=== PATIENT | male | born 1965 | race Caucasian/White ===

== ENCOUNTER → 2022-06-22 13:06 | Outpatient (BNVA) | payer MEDICARE, MEDICAID, SELFPAY | PROVIDERS: PCP Internal Medicine; Visit Provider Hospitalist | DX: J18.9 Pneumonia, unspecified organism (principal); J98.4 Other disorders of lung; R05.3 Chronic cough; B20 Human immunodeficiency virus [HIV] disease; Z79.899 Other long term (current) drug therapy | CPT/HCPCS: 99202 ==

== ENCOUNTER 2022-07-27 13:33 | Outpatient (REF) | payer MEDICARE, MEDICAID, SELFPAY | END 2022-07-27 13:34 | disposition home or self-care (01) | LOC: HO.RESP 13:33 | PROVIDERS: PCP Internal Medicine; Visit Provider Hospitalist | DX: Z13.89 Encounter for screening for other disorder (principal) ==

== ENCOUNTER → 2022-08-24 14:34 | Outpatient (BNVA) | payer MEDICARE, MEDICAID, SELFPAY | PROVIDERS: PCP Internal Medicine; Visit Provider Hospitalist | DX: J98.4 Other disorders of lung (principal); R91.8 Other nonspecific abnormal finding of lung field; R05.3 Chronic cough; Z79.899 Other long term (current) drug therapy | CPT/HCPCS: 99212 ==

== ENCOUNTER 2023-09-19 13:57 | Outpatient (AMB) | payer MEDICARE, MEDICAID, SELFPAY ==
[2023-09-19 14:02] VITALS: BP 124/70; PULSE 89; O2SAT 97; BMI 21.6
--- NOTE | 2023-09-19 14:02 | MHC.OFFVIS ---
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 He suspects that he developed RSV. He was helping his mother at the time and she also became ill with respiratory symptoms. In view of these circumstances with the pandemic he did not go to the ER. Although, his respiratory symptoms are getting worse with shortness of breath cough and chest tightness. Sometime later the patient did follow up with his infectious disease team at [facility]. In he was noted to be hypoxic down to the 80s in part of the workup included a CT scan of the chest with IV contrast, PE protocol. We personally reviewed the CT scan together. Patient definitely had evidence of ground-glass opacities in both bases as well as a pneumonic cyst noted on the right lower lobe adjacent to the area of ground-glass. the patient was treated with antibiotics and also with prednisone. Initially he did start feeling better but after he completed the prednisone the coughing started up again. Coughing was moderate severity nonproductive in nature. Very uncomfortable for him. Therefore his primary care doctor prescribed Symbicort 80/4.5 mcg 2 puffs twice a day. After starting the Symbicort his symptoms improved dramatically. He has been very happy about that fact. He denies any respiratory limitations at this point. On examination though he still has some fine crackles both bases right more than left. We did go for brief walking oximetry the patient maintain a pulse ox of 99% throughout the ambulation without any respiratory complaints. This is overall reassuring. 08/24/2022 the patient is here for a pulmonary follow-up visit. The patient overall is doing well. His respiratory status is back to baseline. The patient did continue the Symbicort. At this point like to continue because he she also much better on it. Denies any significant coughing or shortness of breath. We did review his recent CT scan of the chest and also compared to his CT scan from March. There stress sick improvement in the ground-glass opacities. Now near complete resolution. He now has bilateral pulmonary nodules that are better appreciated now that the ground-glass haziness has subsided. In addition to that there is minimal degree of atelectasis that is likely the residual from the inflammatory process. Overall much significantly improved. The patient overall is very happy with that he did not have his pulmonary function studies because there canceled on the day that he presented which is a unfortunate situation. At this point will hold off on PFTs since he is clinically doing better. Will plan to follow-up in a year's time with a CT scan to follow up with his pulmonary nodules, however. 09/19/2023 the patient is here for a pulmonary follow-up visit. Overall he is doing very well from a respiratory status. He is responding well to the Symbicort. Sometimes he may take 3 inhalations at a time. I did caution him to back down to 2. should also continue rinsing his mouth. He did have a CT scan of the chest in July 2023. Appears that his pulmonary nodules have been stable in the ground-glass opacities have now subsided. Overall very reassuring findings. Although they did mention some hepatocellular disease. At which point the patient did follow-up with his Infectious Disease doctor on primary care and now waiting to see GI. It is reassuring that his LFTs are normal and that his liver function appears to be intact. I did try to reassure him since he is concerned about these findings. Otherwise the patient is without any other complaints. The patient follow-up in a year's time. If he develops any worsening symptoms he will call for an earlier assessment. In view of these stable findings will hold off on imaging studies at this time. Will consider additional imaging studies during the next visit. [facility] Medical History (Updated 08/25/22 @ 08:01 by Torin Crenshaw MD) Pulmonary nodules Lung cyst HIV (human immunodeficiency virus infection) Chronic cough Pneumonitis Social History (Updated 06/22/22 @ 13:33 by FEDERICO Ortez) Patient Tobacco Use Status: Former Tobacco user Tobacco use type: Cigarette Years Smoked: 13 Years Review of Systems Const Denies fever(s) Eyes Denies change in vision ENT Denies change in voice Card Denies chest pain and Denies dyspnea Resp Reports cough and Denies dyspnea GI Reports no additional complaints Musc Reports no additional complaints Skin/Breast Denies rash Neuro Reports no additional complaints [place]/Lymph Denies easy bleeding and Denies easy bruising Physical Exam Vital Signs: Last Vital Signs Pulse 89 09/19/23 14:02 BP 124/70 09/19/23 14:02 Pulse Ox 97 09/19/23 14:02 Oxygen Delivery Method Room Air 09/19/23 14:02 BMI result Body Mass Index 21.6 Const General: comfortable HEENT Head: Yes normocephalic Neck Neck: Yes supple Chest Chest palpation & inspection: normal inspection of the chest Resp Effort & Inspection: normal respiratory effort Auscultation: clear to auscultation bilaterally, no crackles, no rales and no rhonchi Cardio Rate: regular rate Rhythm: regular rhythm Heart sounds: S1 normal heart sound present and S2 normal heart sound present GI Palpation (GI): Soft to palpation Skin General skin exam: no rashes or lesions noted Extrem General: Yes no clubbing, cyanosis or edema Assessment & Plan Assessment & Plan (1) Pneumonitis: Comment: resolved Code(s): J18.9 - Pneumonia, unspecified organism Category: Medical (2) Chronic cough: Comment: better Code(s): R05.3 - Chronic cough Category: Medical (3) Lung cyst: Code(s): J98.4 - Other disorders of lung Category: Medical (4) Pulmonary nodules: Code(s): R91.8 - Other nonspecific abnormal finding of lung field Category: Medical Plan Recommendations: continue symbicort consider additional imaging during the next visit F/U 1 yr Coding Level of Care Code Est Pt Level 4 (79193) Diagnoses Pneumonitis J18.9 Chronic cough R05.3 Lung cyst J98.4 Pulmonary nodules R91.8 Time Spent (min) 17
== END 2023-09-19 14:29 | disposition home or self-care (01) ==
PROVIDERS: PCP Internal Medicine; Visit Provider Hospitalist
DX: J18.9 Pneumonia, unspecified organism (principal); R05.3 Chronic cough; J98.4 Other disorders of lung; R91.8 Other nonspecific abnormal finding of lung field
CPT/HCPCS: 99214

== ENCOUNTER → 2023-09-19 13:57 | Outpatient (BNVA) | payer MEDICARE, MEDICAID, SELFPAY | PROVIDERS: PCP Internal Medicine; Visit Provider Hospitalist | DX: J18.9 Pneumonia, unspecified organism (principal); R05.3 Chronic cough; J98.4 Other disorders of lung; B20 Human immunodeficiency virus [HIV] disease; Z79.899 Other long term (current) drug therapy | CPT/HCPCS: 99212 ==

== ENCOUNTER 2024-10-08 10:41 | Outpatient (AMB) | payer MEDICARE, MEDICAID, SELFPAY ==
[2024-10-08 10:51] VITALS: BP 114/56; PULSE 83; O2SAT 96; BMI 22.4
--- NOTE | 2024-10-08 10:51 | A.OFFVIS_ITS ---
Vital Signs 10/08/24 10:51 Height 5 ft 11 in Weight 160 lb 14.999 oz BMI 22.4 BP 114/56 L Blood Pressure Location Lt brachial Position Sitting Pulse 83 Pulse Source Pulse Oximeter Pulse Oximetry (%) 96 Oxygen Delivery Method Room Air Intake Visit Reasons: Cough Mental Health Practitioner Required: No Accompanied by: Self / Same As Patient Allergies Penicillins Allergy (Severe, Verified 10/08/24 10:54) Anaphylaxis sulfa Drugs Allergy (Severe, Uncoded 09/19/23 14:04) Hives HPI Comments Details: The patient is a 59-year-old gentleman with a diagnosis of HIV on retroviral therapy who apparently was in his usual state health until back in January when he started developing respiratory symptoms likely from a respiratory virus. He suspects that he developed RSV. He was helping his mother at the time and she also became ill with respiratory symptoms. In view of these circumstances with the pandemic he did not go to the ER. Although, his respiratory symptoms are getting worse with shortness of breath cough and chest tightness. Sometime later the patient did follow up with his infectious disease team at [facility]. In he was noted to be hypoxic down to the 80s in part of the workup included a CT scan of the chest with IV contrast, PE protocol. We personally reviewed the CT scan together. Patient definitely had evidence of ground-glass opacities in both bases as well as a pneumonic cyst noted on the right lower lobe adjacent to the area of ground-glass. the patient was treated with antibiotics and also with prednisone. Initially he did start feeling better but after he completed the prednisone the coughing started up again. Coughing was moderate severity nonproductive in nature. Very uncomfortable for him. Therefore his primary care doctor prescribed Symbicort 80/4.5 mcg 2 puffs twice a day. After starting the Symbicort his symptoms improved dramatically. He has been very happy about that fact. He denies any respiratory limitations at this point. On examination though he still has some fine crackles both bases right more than left. We did go for brief walking oximetry the patient maintain a pulse ox of 99% throughout the ambulation without any respiratory complaints. This is overall reassuring. 08/24/2022 the patient is here for a pulmonary follow-up visit. The patient overall is doing well. His respiratory status is back to baseline. The patient did continue the Symbicort. At this point like to continue because he she also much better on it. Denies any significant coughing or shortness of breath. We did review his recent CT scan of the chest and also compared to his CT scan from March. There stress sick improvement in the ground-glass opacities. Now near complete resolution. He now has bilateral pulmonary nodules that are better appreciated now that the ground-glass haziness has subsided. In addition to that there is minimal degree of atelectasis that is likely the residual from the inflammatory process. Overall much significantly improved. The patient overall is very happy with that he did not have his pulmonary function studies because there canceled on the day that he presented which is a unfortunate situation. At this point will hold off on PFTs since he is clinically doing better. Will plan to follow-up in a year's time with a CT scan to follow up with his pulmonary nodules, however. 09/19/2023 the patient is here for a pulmonary follow-up visit. Overall he is doing very well from a respiratory status. He is responding well to the Symbicort. Sometimes he may take 3 inhalations at a time. I did caution him to back down to 2. should also continue rinsing his mouth. He did have a CT scan of the chest in July 2023. Appears that his pulmonary nodules have been stable in the ground-glass opacities have now subsided. Overall very reassuring findings. Although they did mention some hepatocellular disease. At which point the patient did follow-up with his Infectious Disease doctor on primary care and now waiting to see GI. It is reassuring that his LFTs are normal and that his liver function appears to be intact. I did try to reassure him since he is concerned about these findings. Otherwise the patient is without any other complaints. The patient follow-up in a year's time. If he develops any worsening symptoms he will call for an earlier assessment. In view of these stable findings will hold off on imaging studies at this time. Will consider additional imaging studies during the next visit. 10/08/2024 the patient is here for pulmonary follow-up visit. Overall he is doing well. He did get an evaluation from GI regarding the hepatocellular findi ngs on the CAT scan of the chest and everything worked out well. He is very excited about that. As far as his breathing has been doing okay. He has been on the Symbicort. Although he has noticed some palpitations at times. It has been happening now for about a year although he is noticing a little bit more. He now he is complaining of some substernal chest burning sensation when he is going up a flight of stairs. Typically gets better when he rests. The patient has been using the Symbicort typically just in the morning. We did talk about the Symbicort with a formoterol being a very strong beta agonist and achy indeed induced palpitations. Therefore will switch him over to Advair HFA. The other option is Trelegy but he wants to avoid powder. In addition to that the patient will have an EKG. If his EKGs abnormal he definitely needs to see Cardiology sooner rather than later. However, I also told them that if he gets the burning sensation and if does not improve after resting he needs to be seen urgently by a medical provider. Again, he is going to follow-up with his primary care doctor soon he is going to request a cardiology evaluation which I believe is very reasonable. [facility] Medical History (Updated 10/08/24 @ 22:46 by Torin Crenshaw MD) Chest discomfort Pulmonary nodules Lung cyst HIV (human immunodeficiency virus infection) Chronic cough Pneumonitis Social History Patient Tobacco Use Status: Former Tobacco user Tobacco use type: Cigarette Years Smoked: 13 Years Review of Systems Const Denies fever(s) Eyes Denies change in vision ENT Denies change in voice Card Reports chest pain with activity, Reports palpitations, Denies dyspnea and Reports dyspnea on exertion Resp Reports cough, Denies dyspnea and Reports dyspnea on exertion GI Reports no additional complaints Musc Reports no additional complaints Skin/Breast Denies rash Neuro Reports no additional complaints Endo Reports palpitations [place]/Lymph Denies easy bleeding and Denies easy bruising Physical Exam Vital Signs: Last Vital Signs Pulse 83 10/08/24 10:51 BP 114/56 L 10/08/24 10:51 Pulse Ox 96 10/08/24 10:51 Oxygen Delivery Method Room Air 10/08/24 10:51 BMI result Body Mass Index 22.4 Const General: comfortable HEENT Head: Yes normocephalic Neck Neck: Yes supple Chest Chest palpation & inspection: normal inspection of the chest Resp Effort & Inspection: normal respiratory effort Auscultation: no crackles, no rales, no rhonchi and diminished lung sounds Cardio Rate: regular rate Rhythm: regular rhythm Heart sounds: S1 normal heart sound present and S2 normal heart sound present GI Palpation (GI): Soft to palpation Skin General skin exam: no rashes or lesions noted Extrem General: Yes no clubbing, cyanosis or edema Assessment & Plan Assessment & Plan (1) Pneumonitis: Comment: resolved Code(s): J18.9 - Pneumonia, unspecified organism Category: Medical (2) Chronic cough: Comment: better Code(s): R05.3 - Chronic cough Category: Medical (3) Lung cyst: Code(s): J98.4 - Other disorders of lung Category: Medical (4) Pulmonary nodules: Code(s): R91.8 - Other nonspecific abnormal finding of lung field Category: Medical (5) Chest discomfort: Code(s): R07.89 - Other chest pain Category: Medical Plan Recommendations: stop symbicort due to palpitations start Advair HFA, consider Trelegy EKG Should go seek urgent medical care if chest pain reoccurs and worsen Consider repeat imaging if symptoms are still not clearly explained F/U 4-6 yr Orders: Orders ECG 12 lead EKG Today J44.9 - Chronic obstructive pulmonary disease, unspecified Medications: New fluticasone propion-salmeterol 115-21 mcg/actuation (Advair HFA) 2 puffs inhalation Q12H 12 grams 11RF 30 days Coding Level of Care Code Est Pt Level 4 (90097) Diagnoses Pneumonitis J18.9 Chronic cough R05.3 Lung cyst J98.4 Pulmonary nodules R91.8 Chest discomfort R07.89 Time Spent (min) 16
--- OUTSIDE RECORDS SUMMARY | 2024-10-08 11:44 | XMS_ITS | Patient Health Record ---
Author Organization [facility] Address [address] [place] [address] Care Team Providers Care Linoleum Floor Layer Name Role Phone Niraj Long MD Primary Care Provider Unavailab Patricia Wilson Unavailable [phone] Allergies Allergen (clinical drug ingredient) Drug/Non Drug Allergy documented on EMR Reaction Allergy Type Onset Date Status Biaxin Unknown Drug Allergy Active azithromycin Zithromax Z-Pan Unknown Drug Allergy Active erythromycin Erythromycin Unknown Drug Allergy A ctive Penicillin Unknown Drug Allergy Active Substance with sulfonamide structure and antibacterial mechanism of action (substance) Sulfa Antibiotics Unknown Drug Allergy Active Reason For Referral No Information Medications Medication SIG (Take, Route, Frequency, Duration) Notes Start Date End Date Status Telmisartan 20 MG 2 tablets Orally Onc e a day; Duration: 30 day(s) Active Tivicay 50 MG 1 tablet Orally Once a day; Duration: 30 day(s) Active Finasteride 5 MG 1 tablet Orally Once a day; Duration: 30 day(s) Active Zolpidem Tartrate 5 MG 1 tablet at bedti me Orally Once a day Active Levothyroxine Sodium 50 MCG 1 tablet in the morning on an empty stomach Orally Once a day; Duration: 30 day(s) Active ALPRAZolam 0.5 MG 1 tablet Orally Twic e a day Active Aspirin 81 MG 1 tablet Orally Once a day; Duration: 30 day(s) Active Norvir 100 MG 1 tablet with a meal Orally Once a day; Duration: 30 day(s) Active Prezista 800 MG 1 tablet with food Orally Once a day; Duration: 30 day(s) Active Pravastatin Sodium 40 MG 1 tablet Orally Once a day; Duration: 30 day(s) Active Immunizations Vaccine Route Administration Date Status Comme nts COVID-19 Pfizer BioNTech Vaccine Unknown 10/09/2021 Administered 4th 04/20/2021 3rd 11/06/2020 2nd 06/18/2020 1st 05/28/2020 Social History Tobacco Use: Social History Observation Description Date Details (start date - stop date) Former Smoker NA - 03/21/2011 Tobacco Use/Smoking Question Answer Notes Are you a: former smoker When did you stop smoking? 03/21/2011 Alcohol Screen Question Answer Notes Did you have a drink containing alcohol in the p ast year? Yes Points 0 Interpretation Negative Problems Problem Type SNOMED Code ICD Code Onset Dates Problem Status W/U Status Risk Notes Problem Non-pressure ulcer of left lower extremity, limited to breakdown of skin (L97.921) Active confirmed Plan Of Treatment No Information Insurance Providers Payer Name Payer Address Payer Phone Subscriber Number Group Number Insured Name Patient Relationship to Insured Coverage Start Date Coverage End Date [employer] [place] [employer] [address] [place] [address] [phone] [id number] Yaya Small Self - patient is the insured Medical (General) History Medical History History ICD Code Anxiety asthma Back,Hip,and Knee pain High blood pressure Kidney disease Numbness chronic sinusitis thyroid Joint implants/screws Human immunodeficiency virus (HIV), posi tive Surgical History Surgery Date(Month/Year) rotator cuff tear repair cystoscopy
--- OUTSIDE RECORDS SUMMARY | 2024-10-08 11:44 | XMS_ITS | Clinical Summary ---
Author Organization [facility] Facility Address [address] [place] [id number] Care Team Providers Care Bobbin Dumper Name Role Phone Niraj Long MD Primary Care Provider [phone] Allergies Active Allergy Reactions Criticality Noted Date Comments Amlodipine Other (see comments) Medium 06/20/2020 Azithromycin Other (see comments) 06/20/2020 Lisinopril Other (see comments) 06/20/2020 Losartan Other (see comments) 06/20/2020 Penicillin V Rash Low 06/20/2020 Sulfa Antibiotics Rash Low 06/20/2020 Sulfamethoxazole-Trimethoprim Rash Low 2020 Valsartan Other (see comments) 07/20/2019 Medications ALPRAZolam (XANAX) 0.5 MG tablet Take by mouth 1 (one) time each day 7 Active amLODIPine (NORVASC) 2.5 MG tablet Comments: Filled Date: Feb 18 2020 12:00AM Patient Notes: TAKE 1 TABLET BY MOUTH EVERY DAY Duration: 30 0 Active Darunavir Ethanolate (Prezista) 800 MG tablet Take 1 tablet by mouth 1 (one) time each day Active dolutegravir (Tivicay) 50 MG tablet Take 1 tablet by mouth 1 (one) time each day Active elvitegravir (Vitekta) 150 MG tablet Take 1 tablet by mouth 1 (one) time each day 6 Active eszopiclone (Lunesta) 3 MG tablet Take 1 tablet by mouth at bed time Active fluticasone (FLONASE) 50 MCG/ACT nasal spray Administer 2 sprays into each nostril 2 (two) times a day 7 Active levothyroxine (SYNTHROID, LEVOTHROID) 50 MCG tablet Take 1 tablet by mouth 1 (one) time each day 7 Active pravastatin (PRAVACHOL) 20 MG tablet Take 1 tablet by mouth 1 (one) time each day 6 Active ritonavir (Norvir) 100 MG tablet Take 1 tablet by mouth 1 (one) time each day Active testosterone (ANDROGEL) 50 MG/5GM (1%) gel Apply topically 1 (one) time each day 6 Active scopolamine (Transderm-Scop , 1.5 MG,) 1 MG/3DAYS patch 72 hour Apply 1 patch topically every 3rd (third) day 7 Active Multiple Vitamins-Minera ls (MULTIVITAMIN ADULT EXTRA C PO) Take 1 capsule by mouth 1 (one) time each day Active albuterol HFA (PROVENTIL HFA;VENTOLIN HFA) 108 (90 Base) MCG/ACT inhaler Inhale 2 puffs 4 (four) times a day Active Active Problems Problem Noted Date Diagnosed Date Acquired pancytopenia 06/20/2020 Benign essential hypertension 06/20/2020 Blood in urine 06/20/2020 Chronic kidney disease stage 3 06/20/2020 Corneal abrasion 06/20/2020 Erythrocytosis 06/20/2020 Human immunodeficiency virus infection Hyperlipidemia 06/20/2020 Hypertensive renal disease 06/20/2020 Hypothyroidism 06/20/2020 Liver function tests outside reference range 04/2020 Proteinuria 06/20/2020 Chronic kidney disease due to hypertension 06/20 Immunizations Immunization Administration Dates Next Due Influenza Split High Dose Preservative Free IM 0 12/06/2015 Influenza, Unspecified 11/19/2016 Pneumococcal Polysaccharide 03/08/2017, 7 Family History Medical History Relation Comments Cancer Mother breast Hypertension Mother Kidney disease Sibling sister Relation Status Comments Father Mother Alive Sibling Social History Tobacco Use Types Packs/Day Years Used Date Smoking Tobacco: Former Cigarettes Q uit: 03/21/2010 Alcohol Use Standard Drinks/Week Comments Yes 0 (1 standard drink = 0.6 oz pure alcohol) Alcoholic Drinks/day: Occasional social drink Sex and Gender Information Value Date Recorded Sex Assigned at Not on file Legal Sex Male 4:46 PM EST Gender Identity Not on file Sexual Orientation Not on file Last Filed Vital Signs Vital Sign Reading Time Taken Comments Blood Pressure 120/76 12/10/2019 12:01 PM EDT Pulse 77 12/10/2019 12:00 PM EDT Temperature - - Respiratory Rate - - Oxygen Saturation 97% 12/10/2019 12:00 PM EDT Inhaled Oxygen Concentration - - Weight 77.6 kg (171 lb) 12/10/2019 12:00 PM EDT Height 180.3 cm (5' 11 ) 12/10/2019 12:00 PM EDT Body Mass Index 23.85 12/10/2019 12:00 PM EDT Plan of Treatment Health Maintenance Due Date Last Done Comments Hepatitis B Vaccine (1 of 3 - 19+ 3-dose series) 1985 Colorectal Cancer Screening: Annual FOBT 2015 Colorectal Cancer Screening: Colonoscopy 2015 Colorectal Cancer Screening: Sigmoidoscopy 2015 Pneumococcal Vaccine: 50+ Ye ars (3 of 3 - PCV) 03/08/2018 03/08/2017, 06/01/2006 Influenza Vaccine (#1) 2024 11/19/2016, 2015 Pneumococcal Vaccine: Peds ( 0 to 5 Years) and At-Risk Patients (6 to 49 Years) Discontinued 03/08/2017, 06/01/2006 [place] [address] [facility] Medicaid [place] [facility] Medicaid [place] Care Teams Bobbin Dumper Relationship Specialty Start Date End Date Niraj Long MD [facility] [id number], [place] PCP - General 03/31/20
--- OUTSIDE RECORDS SUMMARY | 2024-10-08 11:44 | XMS_ITS | Clinical Summary ---
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 1 Active ALPRAZolam (XANAX) 0.5 mg tablet Take 1 tablet (0.5 mg total) by mouth. 7 Active pravastatin (PRAVACHOL) 20 mg tablet Take 1 tablet (20 mg total) by mouth 1 (one) time each day. 6 Active ALPRAZolam (NIRAVAM) 0.25 mg dispersible tablet Dissolve 1 tablet (0.25 mg total) on top of the tongue at bedtime as needed for anxiety. Max Daily Amount: 0.25 mg Active ritonavir (NORVIR) 80 mg/mL solution Take by mouth 2 (two) times a day. Active dolutegravir (TIVICAY) 50 mg tablet Take 1 tablet (50 mg total) by mouth 1 (one) time each day. Active Active Problems Problem Noted Date Diagnosed Date Abnormal liver diagnostic imaging 01/27/2024 HIV (human immunodeficiency virus infection) (CMS/HCC V24, CMS/HCC V28) HLD (hyperlipidemia) BPH (benign prostatic hyperplasia) Anxiety Adenomatous colon polyp Encounters Date Type Department Care Team Description 08/08/2024 Telephone Gastroenterology - [address] [facility] [address] [place] [id number] Davina Lawson [place] Results 08/07/2024 10:23 AM EDT - 08/07/2024 11:59 PM EDT Hospital Encounter [facility] Ultrasound [address] [place] [id number] Discharge Disposition: Home or Self Care from Last 3 Months Medical History Medical History Date Comments HIV (human immunodeficiency virus infection) (CM S/HCC V24, CMS/HCC V28) HLD (hyperlipidemia) BPH (benign prostatic hyperplasia) Anxiety Adenomatous colon polyp Social History Tobacco Use Types Packs/Day Years Used Date Smoking Tobacco: Never Assessed Sex and Gender Information Value Date Recorded Sex Assigned at Not on file Legal Sex Male 12:04 AM EST Gender Identity Not on file Sexual Orientation Not on file Obstetrics History Last Filed Vital Signs Vital Sign Reading Time Taken Comments Blood Pressure - - Pulse - - Temperature - - Respiratory Rate - - Oxygen Saturation - - Inhaled Oxygen Concentration - - Weight 70.3 kg (155 lb) 01/27/2024 1:02 PM EST Height 180.3 cm (5' 11 ) 01/27/2024 1:02 PM EST Body Mass Index 21.62 01/27/2024 1:02 PM EST Plan of Treatment Health Maintenance Due Date Last Done Comments Meningococcal ACWY Vaccine (1 - Risk 2-dose series) 1968 MMR Vaccines (1 of 2 - Risk 2-dose series) 1984 Hepatitis A Vaccines (1 of 2 - Risk 2-dose series) 1985 Cholesterol Screening (Lipid Panel) 02/21/2022 Colorectal Cancer Screening: Colonoscopy 02/21/2022 Hepatitis C Screening 02/21/2022 Medicare Annual Wellness Visit 02/21/2022 Social Influencers of Health Screening 02/21/2022 Hypertension/CHF/CAD Annual BMP Blood Test 01/27/2024 Depression Screening 03/21/2024 COVID-19 Vaccine (8 - Pfizer risk 2023- season) 2024 12/25/2023, 01/19/2023, 10/09/2021, Additional history exists Influenza Vaccine (#1) 2024 , 12/15/2022, 12/08/2020, Additional history exists DTaP,Tdap,and Td Vaccines (2 - Td or Tdap) 08/31/2027 08/30/2017 Hepatitis B Vaccines Completed 08/09/2007, 03/06/2007, 02/08/2007 Zoster Vaccines Completed 02/13/2018, 12/03/2017 Pneumococcal Vaccine: 50+ Years Completed 03/01/2024, 01/09/2019, 03/08/2017, Additional history exists HIB Vaccines Aged Out No longer eligi ble based on patient's age to complete this topic HPV Vaccines Aged Out No longer eligi ble based on patient's age to complete this topic IPV Vaccines Aged Out No longer eligi ble based on patient's age to complete this topic Meningococcal B Vaccine Aged Out No l onger eligible based on patient's age to complete this topic RSV Immunization Patients Under 20 months Aged Out No longer eligible based on patient's age to complete this topic Varicella Vaccines Aged Out No longer eligible based on patient's age to complete this topic Procedures Procedure Name Priority Date/Time Associated Diagnosis Comments US ABDOMEN LIMITED Routine 08/07/2024 10 :46 AM EDT Fatty (change of) liver, not elsewhere classified from Last 3 Months Results * US Abdomen Limited (08/07/2024 10:46 AM EDT) Anatomical Region Laterality Modality Body Ultrasound 08/07/2024 5:16 PM EDT Impressions 08/07/2024 5:19 PM EDT Small sized liver otherwise normal study. -------- FINAL REPORT -------- Dictated By: Sin Encinas Dictated Date: 08/07/2024 17:16 ET Assigned Physician: Sin Encinas Reviewed and Electronically Signed By: Sin Encinas Signed Date: 08/07/2024 17:19 ET Workstation ID: [id number] Transcribed By: Self Edit Transcribed Date: 08/07/2024 17:16 ET Narrative 08/07/2024 5:19 PM EDT INDICATION: Fatty liver, human immunodeficiency virus, cirrhosis FINDINGS: Ultrasound of the right upper quadrant performed. Prior relevant studies: CT scan of the abdomen from January 12, 2022. Pancreas: Pancreas well-visualized with mild increased echogenicity throughout. No pancreatic ductal dilatation or focal mass noted. Liver: Small size measuring 11 cm sagittally. Normal hepatic echogenicity. No solid mass or intrahepatic ductal dilatation. Portal vein patent with hepatopedal flow. No significant lobulation along the hepatic contour. Gallbladder: No cholelithiasis, gallbladder wall thickening, pericholecystic fluid or distention. Common bile duct: 3 mm Right kidney: Survey images are within normal limits. Ascites: None Procedure Note Sin Encinas MD - 08/07/2024 INDICATION: Fatty liver, human immunodeficiency virus, cirrhosis FINDINGS: Ultrasound of the right upper quadrant performed. Prior relevant studies: CT scan of the abdomen from January 12, 2022. Pancreas: Pancreas well-visualized with mild increased echogenicitythroughout. No pancreatic ductal dilatation or focal mass noted. Liver: Small size measuring 11 cm sagittally. Normal hepatic echogenicity.No solid mass or intrahepatic ductal dilatation. Portal vein patent withhepatopedal flow. No significant lobulation along the hepatic contour. Gallbladder: No cholelithiasis, gallbladder wall thickening,pericholecystic fluid or distention. Common bile duct: 3 mm Right kidney: Survey images are within normal limits. Ascites: None IMPRESSION: Small sized liver otherwise normal study. 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
== END 2024-10-08 11:29 | disposition home or self-care (01) ==
LOC: HO.HPS 10:42
PROVIDERS: PCP Internal Medicine; Visit Provider Hospitalist
DX: J18.9 Pneumonia, unspecified organism (principal); R05.3 Chronic cough; J98.4 Other disorders of lung; R91.8 Other nonspecific abnormal finding of lung field; R07.89 Other chest pain
CPT/HCPCS: 99214

== ENCOUNTER → 2024-10-08 10:41 | Outpatient (BNVA) | payer MEDICARE, MEDICAID, SELFPAY | PROVIDERS: PCP Internal Medicine; Visit Provider Hospitalist | DX: R05.3 Chronic cough (principal); R00.2 Palpitations; J18.9 Pneumonia, unspecified organism; J98.4 Other disorders of lung; R91.8 Other nonspecific abnormal finding of lung field; R07.89 Other chest pain; J45.909 Unspecified asthma, uncomplicated | CPT/HCPCS: 99212 ==